=== PATIENT | male | born 1995 | race Caucasian/White ===

== ENCOUNTER 2020-06-15 12:39 | Emergency (ER) | payer SELFPAY ==
[~2020-06-15] VITALS: Ht 167 cm; Wt 74.8 kg
--- NOTE | 2020-06-15 12:57 | ED Lower Extremity ---
General Chief Complaint: Lower Extremity Stated Complaint: R LEG PAIN Source: patient Exam Limitations: no limitations History of Present Illness Date Seen by Provider: Jun 15, 2020 Time Seen by Provider: 12:54 Initial Comments To ER with reports of right leg and foot pain. This began Monday. He awakened with this pain. He has no history of injury or history of this pain. The pain is to the medial right ankle/foot just anterior and distal to the medial malleolus. There is a little bit of erythema here and tenderness to palpation but passive range of motion of the ankle does not cause his pain. Only weightbearing. He also has some pain to the outer aspect of the right thigh over the greater trochanter. Again, no injury. No fevers or chills. He just arrived here to the [facility] from the [facility] 1 month ago. Onset: just prior to arrival Severity: moderate Pain/Injury Location: left hip, left foot, left ankle Method of Injury: unknown Modifying Factors: Improves With Movement Allergies and Home Medications Allergies Coded Allergies: No Known Drug Allergies (Unverified , 06/15/20) Home Medications Hydrocodone/Acetaminophen 1 Each Tablet, 1 TAB PO Q4H PRN for PAIN-MODERATE (5- 7) Prescribed by: SAMM TOMAS on 06/15/20 1411 Naproxen 500 Mg Tablet, 500 MG PO BID PRN for PAIN-MODERATE (5-7) Prescribed by: SAMM TOMAS on 06/15/20 1410 Patient Home Medication List Home Medication List Reviewed: Yes Review of Systems Constitutional: see HPI EENTM: see HPI Respiratory: no symptoms reported Cardiovascular: no symptoms reported Genitourinary: no symptoms reported Musculoskeletal: see HPI Skin: no symptoms reported Physical Exam Vital Signs Vital Signs - First Documented 06/15/20 12:53 Temp 37.0 Pulse 92 Resp 20 B/P (MAP) 115/78 (90) Pulse Ox 99 Capillary Refill : Height, Weight, BMI Height: '" Weight: lbs. oz. kg; BMI Method: General Appearance: WD/WN, no apparent distress HEENT: PERRL/EOMI, normal ENT inspection Neck: non-tender, full range of motion Respiratory: no respiratory distress, no accessory muscle use Hips: bilateral hip non-tender, bilateral hip normal inspection, bilateral hip normal range of motion Legs: bilateral leg non-tender, bilateral leg normal inspection, bilateral leg normal range of motion Knees: bilateral knee non-tender, bilateral knee normal inspection, bilateral knee normal range of motion Ankles: right ankle pain, right ankle soft tissue tenderness, right ankle swelling, right ankle other (Passive range of motion of the right ankle does not cause pain but weightbearing does. The area is tender to palpation.) Feet: bilateral foot non-tender, bilateral foot normal inspection, bilateral foot normal range of motion Neurologic/Psychiatric: alert, normal mood/affect, oriented x 3 Skin: normal color Progress/Results/Core Measures Results/Orders Lab Results Laboratory Tests Test 06/15/20 13:15 06/15/20 14:06 Range/Units White Blood Count 9.7 4.3-11.0 10^3/uL Red Blood Count 4.00 L 4.30-5.52 10^6/uL Hemoglobin 11.7 L 13.3-17.7 g/dL Hematocrit 35 L 40-54 % Mean Corpuscular Volume 88 80-99 fL Mean Corpuscular Hemoglobin 29 25-34 pg Mean Corpuscular Hemoglobin Concent 33 32-36 g/dL Red Cell Distribution Width 11.4 10.0-14.5 % Platelet Count 273 130-400 10^3/uL Mean Platelet Volume 8.5 L 9.0-12.2 fL Immature Granulocyte % (Auto) 0 % Neutrophils (%) (Auto) 66 42-75 % Lymphocytes (%) (Auto) 18 12-44 % Monocytes (%) (Auto) 8 0-12 % Eosinophils (%) (Auto) 8 0-10 % Basophils (%) (Auto) 0 0-10 % Neutrophils # (Auto) 6.4 1.8-7.8 10^3/uL Lymphocytes # (Auto) 1.7 1.0-4.0 10^3/uL Monocytes # (Auto) 0.8 0.0-1.0 10^3/uL Eosinophils # (Auto) 0.7 H 0.0-0.3 10^3/uL Basophils # (Auto) 0.0 0.0-0.1 10^3/uL Immature Granulocyte # (Auto) 0.0 0.0-0.1 10^3/uL Erythrocyte Sedimentation Rate 61 H 0-15 MM/HR Sodium Level 135 135-145 MMOL/L Potassium Level 4.0 3.6-5.0 MMOL/L Chloride Level 103 98-107 MMOL/L Carbon Dioxide Level 25 21-32 MMOL/L Anion Gap 7 5-14 MMOL/L Blood Urea Nitrogen 14 7-18 MG/DL Creatinine 0.95 0.60-1.30 MG/DL Estimat Glomerular Filtration Rate > 60 BUN/Creatinine Ratio 15 Glucose Level 108 H 70-105 MG/DL Calcium Level 9.3 8.5-10.1 MG/DL Corrected Calcium 9.2 8.5-10.1 MG/DL Total Bilirubin 0.4 0.1-1.0 MG/DL Aspartate Amino Transf (AST/SGOT) 27 5-34 U/L Alanine Aminotransferase (ALT/SGPT) 30 0-55 U/L Alkaline Phosphatase 75 40-136 U/L C-Reactive Protein High Sensitivity 5.14 H 0.00-0.50 MG/DL Total Protein 8.3 H 6.4-8.2 GM/DL Albumin 4.1 3.2-4.5 GM/DL Urine Color YELLOW Urine Clarity CLEAR Urine pH 6.0 5-9 Urine Specific [place] 1.025 H 1.016-1.022 Urine Protein NEGATIVE NEGATIVE Urine Glucose (UA) NEGATIVE NEGATIVE Urine Ketones NEGATIVE NEGATIVE Urine Nitrite NEGATIVE NEGATIVE Urine Bilirubin NEGATIVE NEGATIVE Urine Urobilinogen 0.2 < = 1.0 MG/DL Urine Leukocyte Esterase NEGATIVE NEGATIVE Urine RBC (Auto) 1+ H NEGATIVE Urine RBC 2-5 H /HPF Urine WBC NONE /HPF Urine Crystals NONE /LPF Urine Bacteria NEGATIVE /HPF Urine Casts NONE /LPF Urine Mucus NEGATIVE /LPF Urine Culture Indicated NO My Orders Orders - SAMM TOMAS APRN Ketorolac Injection (Toradol Injection) (06/15/20 13:00) Hydrocodone/Apap 5/325 Tablet (Lortab 5 (06/15/20 13:00) Cbc With Automated Diff (06/15/20 12:52) Hs C Reactive Protein (06/15/20 12:52) Erythrocyte Sedimentation Rate (06/15/20 12:52) Comprehensive Metabolic Panel (06/15/20 12:52) Ankle, Right, 3 Views (06/15/20 12:52) Hip, Right, 2 Views (06/15/20 12:52) Ua Culture If Indicated (06/15/20 13:53) Neis Manoj Dna Urine Test (06/15/20 13:53) Chlamydia Trachomatis Urine (06/15/20 13:53) Medications Given in ED Current Medications Medications Dose Ordered Sig/Briseyda Route Start Time Stop Time Status Last Admin Dose Admin Acetaminophen/ Hydrocodone Bitart 1 tab ONCE ONCE PO 06/15/20 13:00 06/15/20 13:01 DC 06/15/20 13:09 1 TAB Ketorolac Tromethamine 60 mg ONCE ONCE IM 06/15/20 13:00 06/15/20 13:01 DC 06/15/20 13:10 60 MG Vital Signs/I&O 06/15/20 12:53 Temp 37.0 Pulse 92 Resp 20 B/P (MAP) 115/78 (90) Pulse Ox 99 Diagnostic Imaging Diagonstic Imaging: Xray Comments NAME: GURVINDER VELEZ [facility] REC#: [id number] PT STATUS: REG ER : 1995 PHYSICIAN: SAMM TOMAS [employer] ADMIT DATE: 06/15/20/ER Signed Date of Exam:06/15/20 ANKLE, RIGHT, 3 VIEWS Indication: Right ankle pain AP, oblique and lateral views of the right ankle are obtained. FINDINGS: No acute fracture or dislocation is identified. No abnormal lytic or sclerotic focus is seen, and there is no radiopaque foreign body. IMPRESSION: No acute abnormality. Dictated by: Dictated on workstation # [id number] Dict: 06/15/20 1307 Trans: 06/15/20 1308 [id number] Interpreted by: MARIBELL GARCIA MD Electronically signed by: MARIBELL GARCIA MD 06/15/20 1308 Departure Communication (Admissions) I made an appointment for him with [facility] this Monday at 9:40 AM. Impression Primary Impression: Right hip pain Additional Impression: Right foot pain Disposition: 01 HOME, SELF-CARE Condition: Stable Departure-Patient Inst. Decision time for Depature: 14:09 Referrals: NO,LOCAL PHYSICIAN (PCP/Family) Primary Care Physician Patient Instructions: Joint Pain Add. Discharge Instructions: 1. Use the crutches as needed. Pain medication as directed. Follow-up with [facility] this Monday at 9:40 AM. Return to ER for any worsening. All discharge instructions reviewed with patient and/or family. Voiced understanding. Scripts Hydrocodone/Acetaminophen (Hydrocodone-Acetamin 5-325 mg) 1 Each Tablet 1 TAB PO Q4H PRN for PAIN-MODERATE (5-7), #10 TAB Prov: SAMM TOMAS APRN 06/15/20 Naproxen (Naprosyn) 500 Mg Tablet 500 MG PO BID PRN for PAIN-MODERATE (5-7), #30 TAB 0 Refills Prov: SAMM TOMAS APRN 06/15/20 Work/School Note: Work Release Form Date Seen in the Emergency Department: Jun 15, 2020 Return to Work: Jun 18, 2020 Images Extremities-Lower 1 - Tenderness 1 - Tenderness SAMM TOMAS APRN Jun 15, 2020 12:57
[2020-06-15] MEDS ORDERED: HYDROcodone/APAP 5 MG/325 MG (LORTAB) TAB PO ONE (13:00)
[2020-06-15] MEDS ORDERED: KETOROLAC 60 MG/2 ML VIAL IM ONE (13:00)
--- NOTE | 2020-06-15 13:09 | Diagnostic Imaging Report ---
Indication: Right ankle pain AP, oblique and lateral views of the right ankle are obtained. FINDINGS: No acute fracture or dislocation is identified. No abnormal lytic or sclerotic focus is seen, and there is no radiopaque foreign body. IMPRESSION: No acute abnormality. Dictated by: Dictated on workstation # [id number]
--- NOTE | 2020-06-15 13:10 | Diagnostic Imaging Report ---
Indication: Right hip pain AP and frog-leg view of right hip are obtained. FINDINGS: No acute fracture or dislocation is identified. No abnormal lytic or sclerotic focus is seen, and there is no radiopaque foreign body. IMPRESSION: No acute abnormality. Dictated by: Dictated on workstation # [id number]
[2020-06-15 13:26] LABS: BASOPHILS % (AUTO) 0 % (0-10); EOSINOPHILS # (AUTO) 0.7 10^3/uL (0.0-0.3); EOSINOPHILS % (AUTO) 8 % (0-10); HEMATOCRIT 35 % (40-54); HEMOGLOBIN 11.7 g/dL (13.3-17.7); LYMPHOCYTES # (AUTO) 1.7 10^3/uL (1.0-4.0); LYMPHOCYTES % (AUTO) 18 % (12-44); MEAN CORPUSCULAR HEMOGLOBIN 29 pg (25-34); MEAN CORPUSCULAR HGB CONC 33 g/dL (32-36); MEAN CORPUSCULAR VOLUME 88 fL (80-99); MEAN PLATELET VOLUME 8.5 fL (9.0-12.2); MONOCYTES # (AUTO) 0.8 10^3/uL (0.0-1.0); MONOCYTES % (AUTO) 8 % (0-12); NEUTROPHILS # (AUTO) 6.4 10^3/uL (1.8-7.8); NEUTROPHILS % (AUTO) 66 % (42-75); PLATELET COUNT 273 10^3/uL (130-400); WHITE BLOOD COUNT 9.7 10^3/uL (4.3-11.0)
[2020-06-15 13:35] LABS: ALBUMIN 4.1 GM/DL (3.2-4.5); CHLORIDE 103 MMOL/L (98-107); SODIUM 135 MMOL/L (135-145)
[2020-06-15 13:36] LABS: CALCIUM 9.3 MG/DL (8.5-10.1)
[2020-06-15 13:37] LABS: GLUCOSE 108 MG/DL (70-105); TOTAL PROTEIN 8.3 GM/DL (6.4-8.2)
[2020-06-15 13:39] LABS: BILIRUBIN,TOTAL 0.4 MG/DL (0.1-1.0); CARBON DIOXIDE 25 MMOL/L (21-32)
[2020-06-15 13:41] LABS: ALKALINE PHOSPHATASE 75 U/L (40-136); CREATININE SERUM 0.95 MG/DL (0.60-1.30); GFR ESTIMATED > 60
[2020-06-15 13:42] LABS: BUN/CREATININE RATIO 15
[2020-06-15 13:44] LABS: ALANINE AMINOTRANSFERASE 30 U/L (0-55); ERYTHROCYTE SEDIMENTATION RATE 61 MM/HR (0-15)
[2020-06-15] MEDS ORDERED: NAPR-1071 PO (14:10)
[2020-06-15] MEDS ORDERED: ACHD5005 PO (14:10)
[2020-06-15 14:14] LABS: BILIRUBIN,URINE NEGATIVE (NEGATIVE); CLARITY,URINE CLEAR; COLOR,URINE YELLOW; GLUCOSE, URINE (UA) NEGATIVE (NEGATIVE); KETONES,URINE NEGATIVE (NEGATIVE); LEUKOCYTE ESTERASE ,URINE NEGATIVE (NEGATIVE); NITRITE,URINE NEGATIVE (NEGATIVE); PROTEIN,URINE NEGATIVE (NEGATIVE)
[2020-06-15 14:21] LABS: BACTERIA,URINE NEGATIVE /HPF
[2020-06-15 14:46] VITALS: BP 120/70
== END 2020-06-15 14:46 | disposition home or self-care (01) ==
LOC: ER 12:41
DX: M25.551 Pain in right hip (principal); M79.671 Pain in right foot
CPT/HCPCS: 36415; 73502; 73610; 80053; 81000; 85025; 85652; 86141; 87491; 87591

== ENCOUNTER 2020-10-30 20:45 | Emergency (ER) | payer BC ==
[~2020-10-30] VITALS: Ht 167 cm; Wt 63.8 kg
[~2020-10-30 20:45] MED LIST: ACHD5005 PO; NAPR-1071 PO
--- NOTE | 2020-10-30 21:09 | ED Integumentary General ---
General Chief Complaint: Skin/Wound Problems Stated Complaint: R LEG PAIN Nursing Triage Note: ROUND RED/SWOLLEN AREA TO RIGHT LATERAL CALF X1 WEEK. Source: patient Exam Limitations: no limitations History of Present Illness Date Seen by Provider: Oct 30, 2020 Time Seen by Provider: 20:55 Initial Comments Patient presents ER by private conveyance with chief complaint of 1 week of right lateral leg area of pain swelling redness. No fevers nausea vomiting diarrhea. Greater than 10 years for last tetanus vaccination. Wound has been draining. He has not had seen by a physician, incised or started antibiotics yet. Allergies and Home Medications Allergies Coded Allergies: No Known Drug Allergies (Unverified , 06/15/20) Home Medications Sulfamethoxazole/Trimethoprim 1 Each Tablet, 1 EACH PO BID Prescribed by: KATHI MAI on 10/30/20 2200 Patient Home Medication List Home Medication List Reviewed: Yes Review of Systems Review of Systems Constitutional: No chills, No fever, No malaise Musculoskeletal: No back pain, No joint pain Skin: see HPI, lesions All Other Systems Reviewed Negative Unless Noted: Yes Past [id number] Hx Patient Social History Tobacco Use?: No Substance use?: No Alcohol Use?: No Pt feels they are or have been: No Physical Exam Vital Signs Vital Signs - First Documented 10/30/20 20:50 Temp 36.7 Pulse 87 Resp 16 B/P (MAP) 113/65 (81) Pulse Ox 96 O2 Delivery Room Air Capillary Refill : Less Than 3 Seconds General Appearance: WD/WN, mild distress HEENT: PERRL/EOMI, pharynx normal Cardiovascular: normal peripheral pulses, regular rate, rhythm, no edema Respiratory: no respiratory distress, no accessory muscle use Neurologic/Psychiatric: alert, normal mood/affect, oriented x 3 Skin: warm/dry, other (3 cm elevated indurated erythematous tender to palpation boil on the lateral right leg with a central area pointing and dried secretions) Procedures/Interventions I&D : Site: lateral right leg Blade Size: 11 I & D Procedure: betadine prep (Alcohol) Progress Infiltrated with 5 cc of lidocaine and 1 the patient was ascertained to be an adequately pain under control we used an 11 blade scalpel to make a 3 x 4 mm crosswise incision and expressed about 20 cc of purulent, thin material. Wound was flushed with sterile saline and a gauze dressing to catch the drainage was placed Progress/Results/Core Measures Results/Orders My Orders Orders - KATHI MAI Dipht,Pertuss(Acell),Tet Adult (Boostrix (10/30/20 21:15) Lidocaine 1% Inj 20 Ml (Xylocaine 1% Inj (10/30/20 21:15) Medications Given in ED Current Medications Medications Dose Ordered Sig/Briseyda Route Start Time Stop Time Status Last Admin Dose Admin Diphtheria/ Tetanus/Acell Pertussis 0.5 ml ONCE ONCE IM 10/30/20 21:15 10/30/20 21:16 DC 10/30/20 21:17 0.5 ML Lidocaine HCl 20 ml ONCE ONCE INJ 10/30/20 21:15 10/30/20 21:16 DC 10/30/20 21:16 20 ML Vital Signs/I&O 10/30/20 10/30/20 20:50 22:13 Temp 36.7 36.5 Pulse 87 68 Resp 16 16 B/P (MAP) 113/65 (81) 115/72 (81) Pulse Ox 96 98 O2 Delivery Room Air Room Air Blood Pressure Mean: 81 Progress Progress Note : Time: 21:58 Progress Note Tetanus vaccine brought up-to-date. Drained a large amount of pus and will put him on Bactrim Departure Impression Primary Impression: Abscess of right leg excluding foot Disposition: 01 HOME, SELF-CARE Condition: Stable Departure-Patient Inst. Decision time for Depature: 21:59 Referrals: NO,LOCAL PHYSICIAN (PCP/Family) Primary Care Physician Patient Instructions: Abscess Incision and Drainage (DC) Add. Discharge Instructions: Keep the wound clean with soap and water. Dry, clean gauze applied at least daily or more frequently if it becomes soiled. Bactrim 1 tablet twice a day for the next week to prevent further infection. Return to the ER if the infection is worsening. All discharge instructions reviewed with patient and/or family. Voiced understanding. Scripts Sulfamethoxazole/Trimethoprim (Bactrim Ds Tablet) 1 Each Tablet 1 EACH PO BID for 7 Days, #14 TAB 0 Refills Prov: KATHI MAI 10/30/20 Work/School Note: Work Release Form Date Seen in the Emergency Department: Oct 30, 2020 Return to Work: Nov 02, 2020 Restrictions: No Restrictions KATHI MAI Oct 30, 2020 21:09
[2020-10-30] MEDS ORDERED: LIDOCAINE 1% INJ 20 ML 20 ML VIAL INJ ONE (21:15)
[2020-10-30] MEDS ORDERED: TETANUS,DIPTH,PERTUSS P/F (BOOSTRIX) 0.5 ML VIAL IM ONE (21:15)
[2020-10-30] MEDS ORDERED: SULF1TAB35 PO (22:00)
[2020-10-30 22:13] VITALS: BP 115/72
== END 2020-10-30 22:13 | disposition home or self-care (01) ==
LOC: EDUNIT# 20:45 → ER 20:48
DX: L02.415 Cutaneous abscess of right lower limb (principal); Z23 Encounter for immunization
CPT/HCPCS: 90715